=== PATIENT | female | born 1970 | race African-American/Black ===

== ENCOUNTER 2024-01-02 14:09 | Emergency (ER) | payer OTHER ==
[~2024-01-02] VITALS: Ht 170.2 cm; Wt 104.5 kg
[~2024-01-02 14:09] MED LIST: ALPR2TAB2 PO; HYDR-3971 PO; OMEP20 PO; QUET200T PO
[2024-01-02 14:37] VITALS: BP 121/76; PULSE 95; RESP 18; TEMP 97.6
[2024-01-02 14:40] LABS: GLUCOMETER DEV NAME(LOC) ERT.5; GLUCOSE,POINT OF CARE 170 MG/DL (70-110)
== END 2024-01-02 20:31 | disposition home or self-care (01) ==
LOC: EMS 14:09
DX: N63.11 Unspecified lump in the right breast, upper outer quadrant (principal); F41.9 Anxiety disorder, unspecified; E78.00 Pure hypercholesterolemia, unspecified; G43.909 Migraine, unspecified, not intractable, without status migrainosus; F17.210 Nicotine dependence, cigarettes, uncomplicated; Z90.49 Acquired absence of other specified parts of digestive tract; Z98.890 Other specified postprocedural states; Z88.6 Allergy status to analgesic agent
CPT/HCPCS: 82962; 99282